=== PATIENT | male | born 1960 | race Caucasian/White ===

== ENCOUNTER 2024-09-27 06:22 | Day surgery (SDC) | payer OTHER, MEDICARE, SELFPAY ==
[2024-09-27 10:14] LABS: Glucose - Point of Care 118 mg/dl (70-99)
== END 2024-09-27 12:23 | disposition home or self-care (01) ==
LOC: GI 06:22
PROVIDERS: ATTENDING PHYSICIAN Specialist
DX: Z12.11 Encounter for screening for malignant neoplasm of colon (principal); K64.8 Other hemorrhoids; K57.30 Diverticulosis of large intestine without perforation or abscess without bleeding
CPT/HCPCS: G0121; 82962